=== PATIENT | female | born 1980 | race Caucasian/White ===

== ENCOUNTER 2021-03-01 16:56 | Emergency (ER) | payer BC, SELFPAY ==
--- NOTE | ~2021-03-01 | XR_ITS ---
EXAMINATION: XR wrist RT min 3V EXAM DATE: 03/01/2021 17:14 INDICATION: FALL this p.m.; gen pain Rt wrist. Initial encounter. TECHNIQUE: Right wrist frontal, frontal with ulnar deviation, oblique and lateral projections obtain ed and reviewed. There is no prior study for comparison. FINDINGS: Right wrist scapholunate joint space is maintained. There are no acute fractures or disloca tions identified. There is no subcutaneous gas. The soft tissue is unremarkable. There are no rad iopaque foreign bodies. IMPRESSION: No acute osseous findings. Reviewed, dictated and finalized at location A. IMPRESSION: No acute osseous findings.
[2021-03-01 17:02] VITALS: BP 109/67; PULSE 115; RESP 16; TEMP 36.8; O2SAT 100
--- NOTE | 2021-03-01 17:11 | ED.UPPEXIN ---
HPI - Extremity Injury (Upper) General Chief Complaint: Extremity Injury, Upper Stated Complaint: rt wrist injury Time Seen by Provider: 03/01/21 17:20 Source: patient and RN notes reviewed Mode of arrival: ambulatory Limitations: no limitations History of Present Illness HPI narrative: 40-year-old female presents concern for right wrist pain, low back pain [place] She reports no wrist pain at rest, wrist pain with range of motion. She reports right buttock muscle pain. Reports history of bulging disc. She denies any lacerations, abrasions, open wounds, bruising, swelling. She denies loss of bowel or bladder function, weakness in any extremity, abdominal pain. Denies toxic pain in the setting MD complaint: injury to: right and wrist Related Data Home Medications Medication Instructions Recorded Confirmed budesonide [Rhinocort] 32 mcg INTRANASAL DAILY 03/01/21 03/01/21 Allergies Allergy/AdvReac Type Severity Reaction Status Date / Time latex Allergy Mild dry, red Verified 03/01/21 16:59 lips Sulfa (Sulfonamide Allergy Mild N&V, Verified 03/01/21 16:59 Antibiotics) sweating nitrofurantoin Allergy Unknown Unknown Verified 03/01/21 16:59 sulfanilamide Allergy Unknown Unknown Verified 03/01/21 16:59 Review of Systems Review of Systems: Narrative: CONSTITUTIONAL: Denies malaise, chills, sweats, or fever. SKIN: Denies lacerations, abrasions, bruising, redness, swelling MUSCULOSKELETAL: Reports right wrist pain. Reports right low back pain NEUROLOGIC: Denies numbness, weakness All systems reviewed & are unremarkable except as noted in HPI and below PMFSH Family History Family History Grandparent Hypertension Family history of allergic disorder Family history of heart disease in male family member before age 55 Diabetes mellitus Social History Social History Smoking status: Never smoker Alcohol intake: never Comments At time of signature, agree with nursing past medical, surgical, social and family history. There is no relevant family history pertinent to the presenting complaint Exam Narrative: Exam Narrative: GENERAL: Well-appearing, well-nourished, and in no acute distress. HEAD: Normocephalic, atraumatic. EYES: PERRLA and EOMI. NECK: Supple. No lymphadenopathy. CHEST: Clear to auscultation. No respiratory distress. HEART: Regular rate and rhythm. Distal pulses palpable and equal, cap refill <3 seconds ABDOMEN: Soft, nontender, nondistended, normal active bowel sounds, no palpable or pulsatile masses. No CVA tenderness MUSCULOSKELETAL: Normal range of motion and strength in all extremities; 5/5 strength with hip flexion and extension, dorsiflexion and extension, knee flexion and extension, plantar flexion and extension. Normal sensation in dermatomal distributions with sensitivity to light touch and pain. No midline back tenderness to palpation. No paraspinal tenderness. Transfers from lying to sitting to standing. EXTREMITIES: Right wrist, hand, digits have normal strength and sensation, normal range of motion. No edema or ecchymosis. 5/5 strength with wrist and digit flexion and extension. Normal sensation with sensitivity to light touch and pain. Lateral tenderness. No open wounds, no skin tenting, no devitalized tissue or atrophy, no trophic changes, no obvious deformity, alignment normal, nearby joints and structures intact. Distal pulses palpable and equal bilaterally, skin warm, dry, pink. Capillary refill less than 3 seconds. SKIN: Warm, dry, no rash. No ecchymosis, erythema, open wounds to back. NEURO: No focal deficits. Alert and oriented x3. Reflexes intact. Normal gait. PSYCH: Normal mood and affect Course Course Emergency Course: Patient is aware of diagnosis, understands and agrees to treatment plan. Anticipatory guidance given. Patient agrees
== END 2021-03-01 17:39 | disposition home or self-care (01) ==
PROVIDERS: Emergency Provider Nurse Practitioner; PCP Family Medicine
DX: S69.91XA Unspecified injury of right wrist, hand and finger(s), initial encounter (principal); W09.8XXA Fall on or from other playground equipment, initial encounter; M54.5 Low back pain
CPT/HCPCS: 73110; 99213; G0463

== ENCOUNTER → 2021-03-19 13:27 | Outpatient (CLI) | payer BC, SELFPAY ==
--- NOTE | ~2021-03-19 | XR_ITS ---
XR hand RT 2V DATE: 03/19/2021 13:56 INDICATION: Right hand and wrist injury TECHNIQUE: AP and lateral views COMPARISON: None FINDINGS: There is a linear lucency of the anterior metaphyseal area of the distal humerus consistent with linear nondisplaced fracture. The distal ulna appears intact. Radiocarpal alignment is preserve d. No fracture or dislocation of the hand is evident. IMPRESSION: Linear nondisplaced distal radial fracture Reviewed, dictated and finalized at location B.
--- NOTE | ~2021-03-19 | XR_ITS ---
EXAMINATION: XR wrist RT 2V DATE: 03/19/2021 13:55 INDICATION: Right wrist injury. TECHNIQUE: 2 views of right wrist were obtained. COMPARISON: None. FINDINGS: There is a nondisplaced oblique fracture of distal radial metaphysis with involvement of th e distal articular surface. Ulnar styloid is intact. Joint spaces are normal. IMPRESSION: 1. Nondisplaced oblique fracture of distal radius. Reviewed, dictated and finalized at location A.
== END ==
PROVIDERS: PCP Family Medicine; Visit Provider Nurse Practitioner Family
DX: S52.591A Other fractures of lower end of right radius, initial encounter for closed fracture (principal); M79.641 Pain in right hand
CPT/HCPCS: 73100; 73120

== ENCOUNTER 2021-05-27 10:00 | Outpatient (RCR) | payer BC, SELFPAY ==
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
--- NOTE | 2021-06-08 10:58 | PCOTNOTE ---
OCCUPATIONAL THERAPY DISCHARGE NOTIFICATION 06/08/21 Patient:Carole Malone Date of :1980 Patient has not returned for any further treatments since 05/27/2021, therefore she will be discharged at this time. Touched base with patient via phone call this morning. She reports the MD wants to stop therapy at this time due to MRI results. Patient?s initial visit was on 05/19/2021 and she had a total of 3 visits. The goals have been not met. Thank you for referring this patient to [facility]. Please review, sign, date and return this discharge summary KEIKO. I have been updated about the patient's current status and I agree with discharge from the above service at this time. Referring Physician Date Referring Provider: Blake Galvan MD
== END 2021-06-08 15:34 | disposition home or self-care (01) ==
LOC: ANHOT 10:00
PROVIDERS: PCP Family Medicine; Visit Provider Orthopaedic Surgery
DX: S52.551D Other extraarticular fracture of lower end of right radius, subsequent encounter for closed fracture with routine healing (principal)
CPT/HCPCS: 97018; 97110; 97140; 97166

== ENCOUNTER → 2021-06-07 09:58 | Outpatient (CLI) | payer BC, SELFPAY ==
--- NOTE | ~2021-06-07 | MR_ITS ---
EXAMINATION: MR wrist RT wo con DATE: 06/07/2021 10:38 INDICATION: Right wrist pain TECHNIQUE: Magnetic resonance imaging (MRI) of the right wrist was performed without intravenous cont rast. Sequences performed include axial PD-weighted FSE and PD-weighted FS FSE, coronal PD-weighted F S FSE and T1-weighted SE, and sagittal PD-weighted FS FSE and PD-weighted FSE. COMPARISON: None FINDINGS: Intrinsic ligaments: The scapholunate and lunotriquetral ligaments are normal. Triangular fibrocartilage complex (TFCC): Partial tears along the radial side of the central fiber cartilaginous disc of the triangular fibroca rtilage complex. The foveal and styloid attachments as well as the dorsal and volar radioulnar ligame nts are normal. The ulnar collateral ligament, ulnotriquetral ligament and meniscal homologue are nor mal. The extensor carpi ulnaris tendon sheath is normal. Extensor wrist: Extensor tendons of the wrist are normal. No tenosynovitis. Flexor wrist: The flexor tendons of the wrist are normal. No abnormality in the carpal tunnel with normal median n erve. Guyon's canal: Guyon's canal including the ulnar nerve and artery are normal. Bones/other: There is mild marrow edema along the metadiaphyseal region of the distal radius. Minimal residual mar row edema along a still discernible low signal intensity healing fracture plane along the volar aspec t of the distal radius. No new fractures identified. No cortical erosions, avascular necrosis or path ologic marrow replacing process. Joint spaces are normal with no focal cartilage defects appreciated . IMPRESSION: 1. Advanced healing of a fracture at the distal right radius which remains in essentially anatomic al ignment. 2. Partial tear at the radial aspect of the central fibrocartilaginous disc of the triangular fiber c artilage complex. Reviewed, dictated and finalized at location B. IMPRESSION: 1. Advanced healing of a fracture at the distal right radius which remains in e ssentially anatomic alignment. 2. Partial tear at the radial aspect of the central fibrocartilaginous disc of the triangular fiber cartilage complex.
== END ==
PROVIDERS: PCP Family Medicine; Visit Provider Orthopaedic Surgery
DX: M25.531 Pain in right wrist (principal); S52.91XD Unspecified fracture of right forearm, subsequent encounter for closed fracture with routine healing; S63.591A Other specified sprain of right wrist, initial encounter
CPT/HCPCS: 73221

== ENCOUNTER 2022-08-23 09:09 | Emergency (ER) | payer BC, SELFPAY ==
--- NOTE | ~2022-08-23 | XR_ITS ---
EXAMINATION: XR chest 2V 08/23/2022 09:51 INDICATION: Cough with burning in chest. Covid positive. PROCEDURE: 2 view chest COMPARISON: No prior studies for comparison. FINDINGS: The lungs are clear. The cardiomediastinal silhouette is within normal limits. There are no pleural effusions. There is no pneumothorax suspected. IMPRESSION: 1: NO ACUTE CARDIOPULMONARY DISEASE. Reviewed, dictated and finalized at location A. R SLITTER
[2022-08-23 09:31] VITALS: BP 125/85; PULSE 102; RESP 16; TEMP 36.9; O2SAT 100
--- NOTE | 2022-08-23 10:14 | ED.GENADULT ---
HPI - General Adult General Chief complaint: Upper Respiratory Infection Stated complaint: chest pain, wnts cxr Source: patient Mode of arrival: ambulatory Limitations: no limitations History of Present Illness HPI narrative: Patient presents for evaluation of sick symptoms since last . Symptoms include sinus congestion, postnasal drainage and cough. She thought she had a common cold. She contacted a telemedicine provider yesterday who advised she be evaluated at an urgent care. She states yesterday and today she had a burning sensation in her chest with coughing. She states the pain felt superficial, as though it was in her skin and breasts. She took a home COVID test this morning which was positive. She also had COVID back in 2019. She has received COVID vaccination x 2. no fever, chills, nausea, vomiting, diarrhea. 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 She took some advil cold and sinus for her symptoms. She does not smoke. No additional complaints or concerns. Related Data Home Medications Medication Instructions Recorded Confirmed No Home Medications 08/23/22 08/23/22 Allergies Allergy/AdvReac Type Severity Reaction Status Date / Time latex Allergy Mild dry, red Verified 05/23/22 13:34 lips Sulfa (Sulfonamide Allergy Mild N&V, Verified 05/23/22 13:34 Antibiotics) sweating nitrofurantoin Allergy Unknown Unknown Verified 05/23/22 13:34 sulfanilamide Allergy Unknown Unknown Verified 05/23/22 13:34 Review of Systems Review of Systems: CONSTITUTIONAL: Denies fever, chills, or sweats. EYES: Denies visual changes, redness, or discharge. ENT: reports sinus congestion and postnasal drainage CARDIOVASCULAR: Reports burning sensation in her chest With coughing episodes.Denies chest pain, palpitations, or edema. RESPIRATORY: reports cough. Denies shortness of breath. GASTROINTESTINAL: Denies abdominal pain, nausea, vomiting, or diarrhea. GENITOURINARY: Denies dysuria or hematuria. SKIN: Denies rash or itching. MUSCULOSKELETAL: Denies back pain, joint pain, or myalgia. NEUROLOGIC: Denies headache, numbness, dizziness, or weakness. PSYCHIATRIC: Denies anxiety or depression. [facility] Past Medical History Medical History Anemia BMI 24.0-24.9, adult Fracture of right distal radius Surgical History Surgical History No pertinent past surgical history Family History Family History Grandparent Hypertension Family history of allergic disorder Family history of heart disease in male family member before age 55 Diabetes mellitus Social History Social History Smoking status: Never smoker Alcohol intake: never Substance use: never Additional occupation/education comments: [employer] Gender identity (if verbalized by the patient): Female Spiritual care concerns: No Exam Narrative: GENERAL: Well-appearing, well-nourished, and in no acute distress. HEAD: Normocephalic, atraumatic. EYES: PERRLA and EOMI. ENT: Nares clear, no rhinorrhea or epistaxis. Mucous membranes moist. Oropharynx without tonsillar hypertrophy exudate or other lesions. Bilateral TMs pearly teran nonbulging NECK: Supple. No adenopathy or masses. No carotid bruits or JVD CHEST: Clear to auscultation. No respiratory distress. No wheezes rales or rhonchi HEART: Regular rate and rhythm. No murmur heard. Normal peripheral pulses. ABDOMEN: Soft, nontender, nondistended, normal active bowel sounds. EXTREMITIES: Normal range of motion. No edema. SKIN: Warm, dry, no rash. NEURO: No focal deficits. Alert and oriented x3. PSYCH: Normal mood and affect. Course Course Emergency Course: this is a 40-ye
== END 2022-08-23 10:24 | disposition home or self-care (01) ==
PROVIDERS: Emergency Provider Nurse Practitioner; PCP Family Medicine
DX: U07.1 COVID-19 (principal)
CPT/HCPCS: 71046; 99213; G0463